=== PATIENT | male | born 1930 | race Native Hawaiian/Other Pacific Islander ===

== ENCOUNTER 2019-06-09 19:45 | Outpatient (CLI) | payer OTHER ==
[2019-06-09] MEDS ORDERED: PANTOPRAZOLE 40MG TA PO (20:44)
[2019-06-09] MEDS ORDERED: GLIM2TAB PO (20:45)
[2019-06-09] MEDS ORDERED: EZETIMIBE10 MG PO (20:45)
[2019-06-09] MEDS ORDERED: SOTALOL AF80 MG PO (20:46)
[2019-06-09] MEDS ORDERED: METF500T PO (20:46)
[2019-06-09] MEDS ORDERED: ASA LOW DOSE81 MG PO (20:46)
== END 2019-06-09 19:52 | disposition short-term general hospital (02) ==
LOC: AMB 19:45
DX: R41.82 Altered mental status, unspecified (principal); I44.0 Atrioventricular block, first degree; I48.91 Unspecified atrial fibrillation; R94.31 Abnormal electrocardiogram [ECG] [EKG]
CPT/HCPCS: A0425; A0427